=== PATIENT | female | born 1960 | race Two or more races ===

== ENCOUNTER → 2021-11-04 | Outpatient (CLI) | payer MEDICARE, BC ==
--- NOTE | 2021-11-05 07:17 | CONS ---
CONSULTATION CHIEF COMPLAINT: Morbid obesity. INTERVAL HISTORY: The patient follows up today after not having been seen for quite some time. The patient had a sleeve gastrectomy several years ago. Her weight preoperatively was 277. She was able to get down to 194, but is now up to 226. The patient describes some hoarseness to her voice. She had evaluation by ENT and silent reflux was suspected. The patient had an esophagram apparently where a small hiatal hernia was suspected. She was advised to have an EGD at this time. Denies pain. PHYSICAL EXAMINATION: ABDOMEN: Soft, nontender, nondistended. PLAN: Options reviewed with the patient. We will proceed with upper endoscopy at this time. Continue antacid therapy for now. MMODL / IJN: [id number] /
[2021-11-05 10:01] VITALS: BP 126/86; PULSE 80; TEMP 98; BMI 38.7
== END ==
LOC: BARWHC3 20:44
PROVIDERS: ATTEND Surgery
DX: E66.01 Morbid (severe) obesity due to excess calories (principal); Z68.38 Body mass index [BMI] 38.0-38.9, adult
CPT/HCPCS: 99202

== ENCOUNTER 2021-11-25 10:31 | Day surgery (SDC) | payer MEDICARE, BC ==
[2021-11-25 10:57] VITALS: RESP 16; TEMP 97.6
[2021-11-25] MEDS: LACTATED RINGERS 1,000 ML IV SCH ×2 (11:13→11:31)
[2021-11-25] MEDS ORDERED: LIDOCAINE 2% INJ 20 MG/ML (2 ML VIAL) ONE ×2 (11:33)
[2021-11-25] MEDS ORDERED: PROPOFOL 10 MG/ML 20 ML VIAL IV ONE ×2 (11:33)
--- NOTE | 2021-11-25 11:39 | P.GSHP ---
History of Present Illness H&P Date: 11/25/21 Chief Complaint: GERD 61-year-old female here today for upper endoscopy. Patient with complaints of intermittent reflux. Describes voice hoarseness. Had an esophagogram showing a hiatal hernia. History of previous sleeve gastrectomy. Takes an antacid daily. Past Medical History Past Medical History: GERD/Reflux, Hyperlipidemia, Osteoarthritis (OA), Thyroid Disorder Additional Past Medical History / Comment(s): 3 vertebrae in back collapsed in 2020 sandra's History of Any Multi-Drug Resistant Organisms: None Reported Past Surgical History: Back Surgery, Bariatric Surgery, Breast Surgery, Orthopedic Surgery Additional Past Surgical History / Comment(s): breast reduction gastric sleeve. left arm surgery. back surgery x 2. neck surgery. right carpal tunnel. sleeve gastrectomy Past Anesthesia/Blood Transfusion Reactions: No Reported Reaction Smoking Status: Former smoker - Past Family History Father Family Medical History: CVA/TIA, Diabetes Mellitus Additional Family Medical History / Comment(s): cva and mi at 90 Mother Family Medical History: Diabetes Mellitus Additional Family Medical History / Comment(s): rhumatic fever open heart in ' Medications and Allergies Home Medications Medication Instructions Recorded Confirmed Type Atorvastatin [Lipitor] 80 mg PO DAILY 11/06/21 11/25/21 History Calcium Citrate/Vitamin D3 1 tab PO DAILY 11/06/21 11/21/21 History [Citracal + D Maximum Caplet] Cholecalciferol (Vitamin D3) 75 mcg PO DAILY 11/06/21 11/21/21 History [Vitamin D3 (3000 Iu)] Levothyroxine Sodium [Synthroid] 75 mcg PO DAILY 11/06/21 11/25/21 History Venlafaxine HCl [Effexor XR] 150 mg PO DAILY 11/06/21 11/25/21 History Omeprazole 20 mg PO AC-SUPPER 11/21/21 11/25/21 History Allergies Allergy/AdvReac Type Severity Reaction Status Date / Time No Known Allergies Allergy Verified 11/25/21 10:50 Surgical - Exam Vital Signs Temp Pulse Resp BP Pulse Ox 97.6 F 74 16 134/84 65 L 11/25/21 10:54 11/25/21 10:54 11/25/21 10:54 11/25/21 10:54 11/25/21 10:54 Physical exam: General: Well-developed, well-nourished HEENT: Normocephalic, sclerae nonicteric Abdomen: Nontender, nondistended Extremities: No edema Neuro: Alert and oriented Assessment and Plan (1) GERD (gastroesophageal reflux disease) Narrative/Plan: Will proceed with upper endoscopy Current Visit: Yes Status: Acute Code(s): K21.9 - GASTRO-ESOPHAGEAL REFLUX DISEASE WITHOUT ESOPHAGITIS SNOMED Code(s): 725045759
--- NOTE | 2021-11-25 11:47 | P.PCN ---
Date of Procedure: 11/25/21 Procedure(s) Performed: Preoperative Dx: GERD, history of sleeve gastrectomy Postoperative Dx: Small superficial proximal gastric ulcer, mild gastritis Procedure: EGD with Bx Anesthesia: Sedation Endoscopist: Dr. Pillai Specimens: Antrum Endoscopic Procedure: The patient was on the endoscopy table in the left decubitus position. The Olympus gastroscope was inserted into the oropharynx and passed under direct visualization to the region of the third portion of the duodenum. From that point the scope was slowly withdrawn inspecting all surfaces carefully. There were no neoplastic inflammatory or polypoid lesions throughout the duodenum. The pylorus was widely patent. The stomach was carefully inspected. There was minimal gastritis present. The sleeve itself appeared appropriately sized. I could not retroflex even the previously gastrectomy. At the proximal extent of the sleeve there was a small superficial ulcer and there appeared to be a visible staple there. He was blackish in color and at first I thought it may represent a suture. Without having her operative report with me however I am not aware of a stitch being placed at the time of her sleeve gastrectomy. The diaphragmatic hiatus appeared normal. No obvious hiatal hernia seen. The esophagus was free of abnormalities. The patient was then taken to the recovery room in stable condition per anesthesia guidelines. Recommendations: Await biopsy results. Continue antiacids.
[2021-11-25 12:11] VITALS: BP 120/88; PULSE 75
[2021-11-25] MEDS ORDERED: ONDANSETRON 4 MG/2 ML VIAL IVP ONE (12:19)
== END 2021-11-25 12:39 | disposition home or self-care (01) ==
LOC: ORWHC2ENDO 10:31
PROVIDERS: ATTEND Surgery
DX: K29.50 Unspecified chronic gastritis without bleeding (principal); K25.9 Gastric ulcer, unspecified as acute or chronic, without hemorrhage or perforation; K21.9 Gastro-esophageal reflux disease without esophagitis; E78.5 Hyperlipidemia, unspecified; M19.90 Unspecified osteoarthritis, unspecified site; E07.9 Disorder of thyroid, unspecified; Z87.891 Personal history of nicotine dependence; Z79.899 Other long term (current) drug therapy; Z79.890 Hormone replacement therapy
CPT/HCPCS: 43239; 88305; J2704; J2001